=== PATIENT | male | born 1980 | race Caucasian/White ===

== ENCOUNTER 2017-05-31 04:25 | Emergency (ER) | payer MEDICAID ==
[2017-05-31] MEDS: IPRATROPIUM (NEB) 0.5 MG/2.5 ML AMP NEB (05:35)
[2017-05-31] MEDS: ALBUTEROL 0.5% (NEB) 2.5 MG/0.5 ML AMP NEB (05:46)
== END 2017-05-31 06:30 | disposition home or self-care (01) ==
LOC: FTE 04:25
DX: J20.9 Acute bronchitis, unspecified (principal)
CPT/HCPCS: 94664; 99284-25